=== PATIENT | male | born 1960 | race Two or more races ===

== ENCOUNTER 2020-05-15 21:25 | Emergency (ER) | payer SELFPAY ==
[~2020-05-15] VITALS: Ht 177.8 cm; Wt 71.2 kg
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
--- NOTE | 2020-05-15 21:45 | NUR ---
ED Nurse Note: Recieved pt walk in from home with c/o left leg pain x 1 week, pt is ambulatory with steady gait, no swelling, deformity or other complications noted or reported, pt denies cp, sob or any other complaints, pain at 8/10, has been taking nothing for 1 week for pain.
[2020-05-15] MEDS ORDERED: TYLENOL EXTRA500 MG ORAL (22:02)
[2020-05-15 22:10] VITALS: BP 140/90
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
--- NOTE | 2020-05-15 22:23 | Diagnostic Imaging Report ---
EXAM: XR Left Tibia and Fibula, 2 Views CLINICAL HISTORY: INJ TECHNIQUE: Frontal and lateral views of the left tibia and fibula. COMPARISON: No relevant prior studies available. FINDINGS: Bones/joints: CPPD with meniscal chondrocalcinosis. Plantar calcaneal enthesophyte. No acute fracture. No dislocation. Soft tissues: Unremarkable. No radiopaque foreign body. IMPRESSION: 1. No acute traumatic injury. 2. CPPD with meniscal chondrocalcinosis. 3. Plantar calcaneal enthesophyte.
== END 2020-05-15 22:10 | disposition home or self-care (01) ==
LOC: EMR 21:55
DX: S80.12XA Contusion of left lower leg, initial encounter (principal); W22.8XXA Striking against or struck by other objects, initial encounter; Y92.9 Unspecified place or not applicable; I10 Essential (primary) hypertension
CPT/HCPCS: 99283